=== PATIENT | female | born 1990 | race Caucasian/White ===

== ENCOUNTER 2021-07-22 14:54 | Inpatient (IN) | payer BC ==
[~2021-07-22] VITALS: Ht 172.7 cm; Wt 81.5 kg
[2021-07-22] VITALS (10 sets, daily range): BP systolic 83–110; BP diastolic 47–58
[2021-07-22] MEDS ORDERED: BUPIVACAINE-EPI 0.25%-1:200000 MPF 30 ML VIAL. ONE (15:34)
--- NOTE | 2021-07-22 16:01 | PDOC2 ---
CONSULT Date of Consult Date of Consult DATE: 07/22/21 TIME: 15:59 Reason for Consult Reason for Consult: Acute appendicitis Referring Physician Referring Physician: Parish Identification/Chief Complaint Chief Complaint Right lower quadrant abdominal pain Source Source: Chart review, Patient History of Present Illness Reason for Visit: 30-year-old female whose had a 2-day history of worsening right lower quadrant abdominal pain came into the emergency department today because of worsening pain CT scan was done which showed signs consistent with acute appendicitis without abscess or phlegmon or rupture. Past Medical History Cardiovascular: No pertinent hx Pulmonary: No pertinent hx GI: No pertinent hx Heme/Onc: No pertinent hx Hepatobiliary: No pertinent hx Psych: No pertinent hx Rheumatologic: No pertinent hx Infectious disease: No pertinent hx ENT: No pertinent hx Renal/: No pertinent hx Endocrine: Hypothyroidism Dermatology: No pertinent hx Past Surgical History Past Surgical History: , Other (Umbilical hernia repair) ROS Gastrointestinal: Yes Abdominal Pain Physical Exam General: Alert, Oriented X3, Cooperative, mild distress HEENT: Atraumatic, EOMI Lungs: Clear to auscultation, Normal air movement Heart: Regular rate, No murmurs Abdomen: Normal bowel sounds, Soft, Other (Tender to palpation right lower) Extremities: No edema Skin: No significant lesion Neuro: Normal speech Psych/Mental Status: Mental status NL Assessment/Plan Assessment/Plan Cute appendicitis plan laparoscopic appendectomy LIZANDRO ABRAMS MD Jul 22, 2021 16:01
[2021-07-22] MEDS ORDERED: fentaNYL PF VIAL 100 MCG/2 ML VIAL ONE ×2 (16:06→17:05)
[2021-07-22] MEDS ORDERED: PIPERACILLIN/TAZOBACTAM 3.375 GM in IV NORMAL SALINE 50ML 50 ML IV STA (16:06)
[2021-07-22] MEDS ORDERED: ELECTROLYTE (NON-ICU) PROTOCOL. MC PRN (16:15)
[2021-07-22] MEDS ORDERED: ZOLPIDEM 5 MG TABLET. PO PRN (16:15)
[2021-07-22] MEDS ORDERED: oxyCODONE IR 5 MG TABLET PO PRN (16:15)
[2021-07-22] MEDS ORDERED: PIPERACILLIN/TAZOBACTAM 3.375 GM in IV NORMAL SALINE 50ML 50 ML IV ONE (16:15)
[2021-07-22] MEDS ORDERED: ONDANSETRON PF 4 MG/2 ML VIAL. IVP PRN (16:15)
[2021-07-22] MEDS ORDERED: ROCURONIUM 50 MG/5 ML VIAL. ONE (16:15)
[2021-07-22] MEDS ORDERED: ACETAMINOPHEN 325 MG TABLET. PO PRN (16:15)
[2021-07-22] MEDS ORDERED: CALCIUM CARBONATE 500 MG TAB.CHEW PO PRN (16:15)
[2021-07-22] MEDS ORDERED: MORPHINE SULFATE 2 MG/ML INJ. IV PRN (16:15)
[2021-07-22] MEDS ORDERED: BUPIVACAINE-EPI 0.25%-1:200000 MPF 30 ML VIAL. INJ ONE (16:18)
--- NOTE | 2021-07-22 16:28 | PDOC1 ---
History and Physical Date of Service: DOS: DATE: 07/22/21 TIME: 16:24 Chief Complaint: Problems: (1) Appendicitis Chief Complain: abdominal pain History of Present Illness: HPI: Patient is a 32-year-old female who is presenting with 2 to 3-day history of worsening abdominal pain. Reports the pain initially was pretty diffuse but eventually localized to her right lower quadrant. Says she has been having general unwell feeling and some nausea. Went to the emergency department today due to worsening pain and CT scan showed acute appendicitis without abscess or rupture. [facility] contacted for transfer here. Accepted for surgical evaluation. Past Medical/Surgical History: PMH/PSH: Denies past medical history Allergies: Allergies: Coded Allergies: No Known Medication Allergies (Verified Allergy, Intermediate, 07/22/21) Family History: Family History: Reviewed with patient no known Social History: Social History: Denies alcohol tobacco drug use Current Medications: Current Medications Current Medications Piperacillin Sod/ Tazobactam Sod 3.375 gm/Sodium Chloride 50 ml @ 100 mls/hr 1X STAT IV ; Start 07/22/21 at 16:06; Stop 07/22/21 at 16:35; Status UNV Piperacillin Sod/ Tazobactam Sod 3.375 gm/Sodium Chloride 50 ml @ 100 mls/hr 1X ONCE IV ; Start 07/22/21 at 16:15; Stop 07/22/21 at 16:44 Ondansetron HCl (Zofran) 4 mg PRN Q6HRS PRN IVP NAUSEA/VOMITING; Start 07/22/21 at 16:15 Calcium Carbonate/ Glycine (Tums) 500 mg PRN Q3HRS PRN PO UPSET STOMACH; Start 07/22/21 at 16:15 Zolpidem Tartrate (Ambien) 5 mg PRN QHS PRN PO INSOMNIA, MAY REPEAT IN 1HR; S tart 07/22/21 at 16:15 Info (Non-Icu Electrolyte Protocol) 1 ea PRN DAILY PRN MC SEE COMMENTS; Start 07/22/21 at 16:15 Oxycodone HCl (Roxicodone) 5 mg PRN Q3HRS PRN PO BREAKTHROUGH PAIN; Start 07/22/21 at 16:15 Morphine Sulfate (Morphine Sulfate) 1 mg PRN Q1HR PRN IV MODERATE PAIN; Start 07/22/21 at 16:15 Morphine Sulfate (Morphine Sulfate) 2 mg PRN Q1HR PRN IV SEVERE PAIN; Start 07/22/21 at 16:15 Acetaminophen (Tylenol) 650 mg PRN Q6HRS PRN PO Headaches, Temp > 101.5F; Start 07/22/21 at 16:15 Senna/Docusate Sodium (Senna Plus) 1 tab BID PO ; Start 07/22/21 at 21:00 ROS: Review of Systems Review of System Unless noted in HPI 14 point review of systems was negative Physical Exam: Vital Signs: Vital Signs Date Time Temp Pulse Resp B/P (MAP) Pulse Ox O2 Delivery O2 Flow Rate FiO2 07/22/21 15:27 99.9 82 20 109/50 100 Room Air 99.9 Physcial Exam: GEN: No apparent distress. Alert and oriented HEENT: Normal cephalic, atraumatic, external auditory canals are patent EYES: Extraocular muscles are intact, pupil are equally round and reactive to light and accommodation MUSCULOSKELETAL: Well developed , well nourished, good range of motion ENDOCRINE: No thyromegaly was palpated LYMPHATICS: No cervical chain or axillary nodes were noted HEMATOPOIETIC: No bruising NECK: Supple, no JVD, no thyromegaly was noted LUNGS: Clear to auscultation in all lung resendiz without rhonchi or wheezing HEART: RRR, S1, S2 present. Peripheral pulses intact, no obvious murmurs noted ABDOMEN: Tender throughout nondistended EXTREMITIES: Without clubbing, cyanosis, or edema. Pedal pulses intact. Negative Homans sign NEUROLOGIC: Normal speech and tone. A&O x 3, moves all extremities, no obvious focal deficits PSYCHIATRIC: Normal affect, normal mood. Stable SKIN: No ulcerations or rashes, good skin turgor, no jaundice VASCULAR: Good capillary refill, neurovascular bundle appears to be intact Assessment/Plan Assessment/Plan Acute appendicitis -2 to 3-day history of abdominal pain. Outside hospital CT showed acute appendicitis -Start Zosyn for antibiotic -Surgery consulted planning for appendectomy -Keep n.p.o. -Hold DVT prophylaxis -No home meds to resume Justifications for Admission Other Justification PHYLLIS SULLIVAN MD Jul 22, 2021 16:28
[2021-07-22] MEDS ORDERED: KETOROLAC 30 MG/ML VIAL. ONE (16:43)
[2021-07-22] MEDS ORDERED: ONDANSETRON PF 4 MG/2 ML VIAL. ONE (16:43)
[2021-07-22] MEDS ORDERED: GLYCOPYRROLATE 1 MG/5 ML VIAL. ONE (16:43)
[2021-07-22] MEDS ORDERED: PROPOFOL 10 MG/ML (20ML) VIAL. IV ONE (16:43)
[2021-07-22] MEDS ORDERED: SEVOFLURANE 61 TO 120 MINUTES. IH ONE (16:43)
[2021-07-22] MEDS ORDERED: DEXAMETHASONE SOD PHOS 4 MG/ML VIAL ONE (16:43)
[2021-07-22] MEDS ORDERED: NEOSTIGMINE METHYLSULFATE 5 MG/5 ML SYRINGE. ONE (16:43)
[2021-07-22] MEDS ORDERED: LIDOCAINE 2% PF 5 ML VIAL. ONE (16:43)
--- NOTE | 2021-07-22 16:48 | PDOC4 ---
Operative Note Operative Note Date: July 222020 at 1646 Preoperative diagnosis: Acute appendicitis Postoperative diagnosis: Same Procedure: Laparoscopic appendectomy Surgeon: Jake Specimen: Appendix Dictation: Patient is a 30-year-old female who was mated to the hospital with right lower quadrant abdominal pain and a CT scan showing signs consistent with acute appendicitis. Procedure of laparoscopic appendectomy was explained to the patient detail risk benefits were also discussed including bleeding infection injury to intra-abdominal contents possible necessitating further open operations alternatives to this procedure also discussed with the patient who seemed to understand and gave a verbal written consent to have procedure performed. Patient was taken to the operating room placed in the supine position general anesthesia was initiated once patient was sleeping intubated her abdomen was prepped and draped usual sterile fashion using ChloraPrep area just below the umbilicus was injected with quarter percent Marcaine with epinephrine incision was made 11 blade scalpel and a varies needle was placed within the abdomen creating pneumoperitoneum once this was complete 12 mm port was placed in a 5 mm camera was placed within the abdomen which was inspected was noted the appendix was edematous no other abnormalities were noted. A 5 mm port was placed low in the midline under direct visualization and a second 5 mm port was placed in the right midabdomen under direct visualization. The appendix was grasped retracted towards the anterior abdominal wall a window was propagated the mesoappendix at the base the appendix with a [place] dissector. Endo ROGELIO stapler was then used to staple and transect the base of the appendix a second load was used to staple and transect the mesoappendix. The appendix was placed in Endo Catch bag removed from the umbilicus right lower quadrant pelvis were irrigated and suctioned dry hemostasis deemed to appropriate the pneumoperitoneum was reduced all ports were removed the fascial defect at the umbilicus was closed with a obwgby-aw-[id number] 0 Vicryl suture and the skin was reapproximated all port sites for subcuticular Monocryl Mastisol Steri-Strips and island dressings were applied. Patient was awakened and extubated in the operating room taken to recovery in stable condition all sponge instrument needle counts listed as correct estimated blood loss 10 mL LIZANDRO ABRAMS MD Jul 22, 2021 16:48
[2021-07-22] MEDS ORDERED: HYDROmorphone 2 MG/ML VIAL IVP PRN (17:00)
[2021-07-22] MEDS ORDERED: IV RINGERS,LACTATED 1000ML 1,000 ML IV SCH (17:00)
[2021-07-22] MEDS ORDERED: fentaNYL PF VIAL 100 MCG/2 ML VIAL IVP PRN ×2 (17:00)
[2021-07-22] MEDS ORDERED: oxyCODONE/APAP 5/325 1 TAB TABLET PO PRN ×2 (17:00)
[2021-07-22] MEDS ORDERED: PROCHLORPERAZINE 10 MG/2 ML VIAL. IVP PRN (17:00)
[2021-07-22] MEDS: KETOROLAC 15 MG/ML VIAL. IVP SCH (17:45)
[2021-07-22] MEDS ORDERED: MORPHINE SULFATE 2 MG/ML INJ. ONE (17:49)
[2021-07-22] MEDS: MORPHINE SULFATE 2 MG/ML INJ. IVP PRN ×2 (17:53→18:03)
--- NOTE | 2021-07-22 19:03 | NUR ---
At 18:10 PM The patient, LAMBERT BYERS, 30 y/o, F admitted by PHYLLIS SULLIVAN MD, was given written information regarding hospital policies, unit procedures and contact persons. Valuables were checked and left with her.
[2021-07-22] MEDS: MORPHINE SULFATE 2 MG/ML INJ. IV PRN ×2 (20:11→22:51)
[2021-07-22] MEDS: SENNOSIDES/DOCUSATE 8.6/50MG TABLET. PO SCH (20:11)
[2021-07-22] MEDS: PIPERACILLIN/TAZOBACTAM 3.375 GM in IV NORMAL SALINE 50ML 50 ML IV SCH (22:58)
[2021-07-22] MEDS ORDERED: VENL37.5 PO (23:51)
[2021-07-22] MEDS ORDERED: LEVO175T5 PO (23:51)
[2021-07-23] MEDS: KETOROLAC 15 MG/ML VIAL. IVP SCH ×3 (00:08→12:41)
[2021-07-23] MEDS: MORPHINE SULFATE 2 MG/ML INJ. IV PRN ×3 (01:25→10:00)
[2021-07-23 03:21] VITALS: BP 93/43
[2021-07-23] MEDS: PIPERACILLIN/TAZOBACTAM 3.375 GM in IV NORMAL SALINE 50ML 50 ML IV SCH ×2 (05:11→12:40)
[2021-07-23 07:00] VITALS: BP 97/57
[2021-07-23 07:08] LABS: BASO % 0 % (0-3); EOS % 0 % (0-3); HEMATOCRIT 35.3 % (36.0-47.0); HEMOGLOBIN 12.2 g/dL (12.0-15.5); LYMPH # 1.3 x10^3/uL (1.0-4.8); LYMPH % 18 % (24-48); MEAN CORPUSCULAR HEMOGLOBIN 33 pg (25-35); MEAN CORPUSCULAR HGB CONC 35 g/dL (31-37); MEAN CORPUSCULAR VOLUME 96 fL (79-100); MONO # 0.5 x10^3/uL (0.0-1.1); MONO % 7 % (0-9); NEUT # 5.4 x10^3/uL (1.8-7.7); NEUT % 75 % (31-73); PLATELET COUNT 210 x10^3/uL (140-400); RED BLOOD COUNT 3.69 x10^6/uL (3.50-5.40); RED CELL DISTRIBUTION WIDTH 12.8 % (11.5-14.5); WHITE BLOOD COUNT 7.2 x10^3/uL (4.0-11.0)
[2021-07-23] MEDS: SENNOSIDES/DOCUSATE 8.6/50MG TABLET. PO SCH (09:50)
[2021-07-23 11:33] VITALS: BP 104/54
--- NOTE | 2021-07-23 13:30 | PDOC ---
[facility] [facility] PROGRESS NOTE Date of Service DOS: DATE: 07/23/21 TIME: 13:26 Chief Complaint Chief Complaint Acute appendicitis Plan: -2 to 3-day history of abdominal pain. Outside hospital CT showed acute appendicitis -Start Zosyn for antibiotic -Surgery consulted planning for appendectomy -Keep n.p.o. -No home meds to resume History of Present Illness History of Present Illness Patient is a 32-year-old female who is presenting with 2 to 3-day history of worsening abdominal pain. Reports the pain initially was pretty diffuse but eventually localized to her right lower quadrant. Says she has been having general unwell feeling and some nausea. Went to the emergency department today due to worsening pain and CT scan showed acute appendicitis without abscess or rupture. [facility] contacted for transfer here. Accepted for surgical evaluation. 07/23/2021: Afebrile. S/p laparoscopic appendectomy. Complains of some postsurgical incisional tenderness. Tolerating regular diet. She has been seen today by general surgery and states she is okay to discharge home. Greater than 30 minutes spent managing the discharge of this patient. Vitals/I&O Vitals/I&O: Vital Signs Date Time Temp Pulse Resp B/P (MAP) Pulse Ox O2 Delivery O2 Flow Rate FiO2 07/23/21 11:33 97.8 72 16 104/54 (71) 99 Room Air 97.8 07/22/21 22:25 10.0 I & O 0 07/22/21 07/22/21 07/23/21 15:00 23:00 07:00 Intake Total 1210 ml 240 ml Output Total 10 ml Balance 1200 ml 240 ml Physical Exam General: Alert, Oriented X3, Cooperative, mild distress Heart: Regular rate, No murmurs Lungs: Clear Abdomen: Normal bowel sounds, Soft, Other (Tender to palpation right lower) Extremities: No edema Skin: No significant lesion Labs Labs: Laboratory Tests Test 07/23/21 06:10 White Blood Count 7.2 x10^3/uL (4.0-11.0) Red Blood Count 3.69 x10^6/uL (3.50-5.40) Hemoglobin 12.2 g/dL (12.0-15.5) Hematocrit 35.3 % (36.0-47.0) Mean Corpuscular Volume 96 fL (79-100) Mean Corpuscular Hemoglobin 33 pg (25-35) Mean Corpuscular Hemoglobin Concent 35 g/dL (31-37) Red Cell Distribution Width 12.8 % (11.5-14.5) Platelet Count 210 x10^3/uL (140-400) Neutrophils (%) (Auto) 75 % (31-73) Lymphocytes (%) (Auto) 18 % (24-48) Monocytes (%) (Auto) 7 % (0-9) Eosinophils (%) (Auto) 0 % (0-3) Basophils (%) (Auto) 0 % (0-3) Neutrophils # (Auto) 5.4 x10^3/uL (1.8-7.7) Lymphocytes # (Auto) 1.3 x10^3/uL (1.0-4.8) Monocytes # (Auto) 0.5 x10^3/uL (0.0-1.1) Eosinophils # (Auto) 0.0 x10^3/uL (0.0-0.7) Basophils # (Auto) 0.0 x10^3/uL (0.0-0.2) Comment Review of Relevant I have reviewed the following items cinthia (where applicable) has been applied. Medications: Current Medications Medications (Trade) Dose Ordered Sig/Grace Route PRN Reason Start Time Stop Time Status Last Admin Dose Admin Piperacillin Sod/ Tazobactam Sod 3.375 gm/Sodium Chloride 50 ml @ 100 mls/hr 1X ONCE IV 07/22/21 16:15 07/22/21 16:44 DC 07/22/21 16:17 Zolpidem Tartrate (Ambien) 5 mg PRN QHS PRN PO INSOMNIA, MAY REPEAT IN 1HR 07/22/21 16:15 07/22/21 20:52 Oxycodone HCl (Roxicodone) 5 mg PRN Q3HRS PRN PO BREAKTHROUGH PAIN 07/22/21 16:15 07/22/21 21:55 Morphine Sulfate (Morphine Sulfate) 2 mg PRN Q1HR PRN IV SEVERE PAIN 07/22/21 16:15 07/23/21 10:00 Senna/Docusate Sodium (Senna Plus) 1 tab BID PO 07/22/21 21:00 07/23/21 09:50 Bupivacaine HCl/ Epinephrine Bitart (Sensorcaine-Epi 0.25%-1:[id number] Mpf) 30 ml STK-MED ONCE INJ 07/22/21 16:18 07/22/21 16:35 DC 07/22/21 16:18 Piperacillin Sod/ Tazobactam Sod 3.375 gm/Sodium Chloride 50 ml @ 100 mls/hr Q6HRS IV 07/23/21 00:00 07/23/21 12:40 Oxycodone/ Acetaminophen (Percocet 5/325) 2 tab PRN Q4HRS PRN PO PAIN 07/22/21 17:00 07/22/21 20:52 Ketorolac Tromethamine (Toradol 15mg Vial) 15 mg Q6HRS IVP 07/22/21 18:00 07/24/21 17:59 07/23/21 12:41 Fentanyl Citrate (Fentanyl 2ml Vial) 25 mcg PRN Q5MIN PRN IVP MILD PAIN 1-3 07/22/21 17:00 07/23/21 16:59 07/22/21 17:13 Fentanyl Citrate (Fentanyl 2ml Vial) 50 mcg PRN Q5MIN PRN IVP MODERATE PAIN 4-6 07/22/21 17:00 07/23/21 16:59 07/22/21 17:32 Morphine Sulfate (Morphine Sulfate) 1 mg PRN Q10MIN PRN IVP SEVERE PAIN 7-10 07/22/21 17:00 07/23/21 16:59 07/22/21 18:03 Ringer's Solution 1,000 ml @ 30 mls/hr Q24H IV 07/22/21 17:00 07/23/21 04:59 DC 07/22/21 16:05 Prochlorperazine Edisylate (Compazine) 5 mg PACU PRN PRN IVP NAUSEA, MRX1 07/22/21 17:00 07/23/21 16:59 07/22/21 20:53 Justifications for Admission Other Justification GABE KUMAR MD Jul 23, 2021 13:30
--- NOTE | 2021-07-23 13:59 | PDOC ---
SURGICAL PROGRESS NOTE DATE: 07/23/21 TIME: 13:57 Subjective overall improved tolerating diet urinating Vital Signs Vital Signs Date Time Temp Pulse Resp B/P (MAP) Pulse Ox O2 Delivery O2 Flow Rate FiO2 07/23/21 11:33 97.8 72 16 104/54 (71) 99 Room Air 97.8 07/22/21 22:25 10.0 I&O Intake and Output 07/23/21 07:00 Intake Total 1450 ml Output Total 10 ml Balance 1440 ml Intake Oral 600 ml IV Total 850 ml Output Estimated Blood Loss 10 ml # Voids 2 General: Alert, Oriented X3, Cooperative Abdomen: Soft, Other (lap dressings dry) Labs Laboratory Tests Test 07/23/21 06:10 White Blood Count 7.2 x10^3/uL (4.0-11.0) Red Blood Count 3.69 x10^6/uL (3.50-5.40) Hemoglobin 12.2 g/dL (12.0-15.5) Hematocrit 35.3 % (36.0-47.0) Mean Corpuscular Volume 96 fL (79-100) Mean Corpuscular Hemoglobin 33 pg (25-35) Mean Corpuscular Hemoglobin Concent 35 g/dL (31-37) Red Cell Distribution Width 12.8 % (11.5-14.5) Platelet Count 210 x10^3/uL (140-400) Neutrophils (%) (Auto) 75 % (31-73) Lymphocytes (%) (Auto) 18 % (24-48) Monocytes (%) (Auto) 7 % (0-9) Eosinophils (%) (Auto) 0 % (0-3) Basophils (%) (Auto) 0 % (0-3) Neutrophils # (Auto) 5.4 x10^3/uL (1.8-7.7) Lymphocytes # (Auto) 1.3 x10^3/uL (1.0-4.8) Monocytes # (Auto) 0.5 x10^3/uL (0.0-1.1) Eosinophils # (Auto) 0.0 x10^3/uL (0.0-0.7) Basophils # (Auto) 0.0 x10^3/uL (0.0-0.2) Laboratory Tests Test 07/23/21 06:10 White Blood Count 7.2 x10^3/uL (4.0-11.0) Red Blood Count 3.69 x10^6/uL (3.50-5.40) Hemoglobin 12.2 g/dL (12.0-15.5) Hematocrit 35.3 % (36.0-47.0) Mean Corpuscular Volume 96 fL (79-100) Mean Corpuscular Hemoglobin 33 pg (25-35) Mean Corpuscular Hemoglobin Concent 35 g/dL (31-37) Red Cell Distribution Width 12.8 % (11.5-14.5) Platelet Count 210 x10^3/uL (140-400) Neutrophils (%) (Auto) 75 % (31-73) Lymphocytes (%) (Auto) 18 % (24-48) Monocytes (%) (Auto) 7 % (0-9) Eosinophils (%) (Auto) 0 % (0-3) Basophils (%) (Auto) 0 % (0-3) Neutrophils # (Auto) 5.4 x10^3/uL (1.8-7.7) Lymphocytes # (Auto) 1.3 x10^3/uL (1.0-4.8) Monocytes # (Auto) 0.5 x10^3/uL (0.0-1.1) Eosinophils # (Auto) 0.0 x10^3/uL (0.0-0.7) Basophils # (Auto) 0.0 x10^3/uL (0.0-0.2) Problem List s/p appy wn 7 ok to or home Justicifation of Admission Dx: Justifications for Admission: Justification of Admission Dx: Yes Comments: appendicitis SANA FRANCO WELDING MACHINE OPERATOR ELECTROSLAG Jul 23, 2021 13:59
[2021-07-23 14:48] VITALS: BP 107/60
--- NOTE | 2021-07-23 14:59 | PDOC3 ---
Discharge Summary Visit Information Date of Admission: Jul 22, 2021 Date of Discharge: Jul 23, 2021 Brief Hospital Course Allergies Allergies Coded Allergies Type Severity Reaction Last Updated Verified No Known Medication Allergies Allergy Intermediate 07/22/21 Yes Vital Signs Vital Signs Date Time Temp Pulse Resp B/P (MAP) Pulse Ox O2 Delivery O2 Flow Rate FiO2 07/23/21 14:48 98.0 73 16 107/60 (76) 98 Room Air 98.0 07/22/21 22:25 10.0 Lab Results Laboratory Tests Test 07/23/21 06:10 White Blood Count 7.2 x10^3/uL (4.0-11.0) Red Blood Count 3.69 x10^6/uL (3.50-5.40) Hemoglobin 12.2 g/dL (12.0-15.5) Hematocrit 35.3 % (36.0-47.0) Mean Corpuscular Volume 96 fL (79-100) Mean Corpuscular Hemoglobin 33 pg (25-35) Mean Corpuscular Hemoglobin Concent 35 g/dL (31-37) Red Cell Distribution Width 12.8 % (11.5-14.5) Platelet Count 210 x10^3/uL (140-400) Neutrophils (%) (Auto) 75 % (31-73) Lymphocytes (%) (Auto) 18 % (24-48) Monocytes (%) (Auto) 7 % (0-9) Eosinophils (%) (Auto) 0 % (0-3) Basophils (%) (Auto) 0 % (0-3) Neutrophils # (Auto) 5.4 x10^3/uL (1.8-7.7) Lymphocytes # (Auto) 1.3 x10^3/uL (1.0-4.8) Monocytes # (Auto) 0.5 x10^3/uL (0.0-1.1) Eosinophils # (Auto) 0.0 x10^3/uL (0.0-0.7) Basophils # (Auto) 0.0 x10^3/uL (0.0-0.2) Laboratory Tests Test 07/23/21 06:10 White Blood Count 7.2 x10^3/uL (4.0-11.0) Red Blood Count 3.69 x10^6/uL (3.50-5.40) Hemoglobin 12.2 g/dL (12.0-15.5) Hematocrit 35.3 % (36.0-47.0) Mean Corpuscular Volume 96 fL (79-100) Mean Corpuscular Hemoglobin 33 pg (25-35) Mean Corpuscular Hemoglobin Concent 35 g/dL (31-37) Red Cell Distribution Width 12.8 % (11.5-14.5) Platelet Count 210 x10^3/uL (140-400) Neutrophils (%) (Auto) 75 % (31-73) Lymphocytes (%) (Auto) 18 % (24-48) Monocytes (%) (Auto) 7 % (0-9) Eosinophils (%) (Auto) 0 % (0-3) Basophils (%) (Auto) 0 % (0-3) Neutrophils # (Auto) 5.4 x10^3/uL (1.8-7.7) Lymphocytes # (Auto) 1.3 x10^3/uL (1.0-4.8) Monocytes # (Auto) 0.5 x10^3/uL (0.0-1.1) Eosinophils # (Auto) 0.0 x10^3/uL (0.0-0.7) Basophils # (Auto) 0.0 x10^3/uL (0.0-0.2) Brief Hospital Course Ms. Pinedo is a 30 old female who presented with acute hepatitis. Consultation placed to general surgery. She laparoscopic appendectomy without complication. Tolerated her diet well surgery. Stable to discharge home with close PCP follow-up. Discharge Information Condition at Discharge: Improved Disposition/Orders: D/C to Home Scheduled Levothyroxine Sodium (Levothyroxine Sodium) 175 Mcg Tablet, 1 TAB PO DAILY for Hypothyroidism, #30 Ref 5 (Reported) Entered as Reported by: ADRIENNE GAITAN on 07/22/212350 Last Taken: Unknown Dose on 07/22/21 0730 Last Action: New Order on 07/22/212350 by ADRIENNE HER Venlafaxine Hcl (Effexor Xr) 37.5 Mg Cap.er.24h, 75 MG PO DAILY for Depression, (Reported) Entered as Reported by: ADRIENNE GAITAN on 07/22/212350 Last Taken: Unknown Dose on 07/22/21 0900 Last Action: New Order on 07/22/212350 by ADRIENNE GAITAN Justicifation of Admission Dx: Justifications for Admission: Justification of Admission Dx: Yes GABE KUMAR MD Jul 23, 2021 14:59
[2021-07-23] MEDS ORDERED: OXYC1TAB15 PO (15:01)
[2021-07-23] MEDS ORDERED: LACTOBACILLUS RHAMNOSUS GG 1 CAPSULE. PO SCH (21:00)
--- NOTE | 2021-07-24 15:22 | PATHOLOGY ---
[facility] Accession Number: [id number] . 01 Material submitted: . appendix - APPENDIX . 01 Clinical history: . APPENDICITIS LAPAROSCOPIC APPENDECTOMY . 02 Diagnosis: Appendix, laparoscopic appendectomy: - Acute appendicitis. ([facility]; 07/24/2021) P 07/24/2021 1312 Local . 02 Comment: There is no evidence of rupture. (JPM:[facility]; 07/24/2021) . 02 Electronically signed: . Magdaleno Charles MD, Pathologist NPI- [id number] . 01 Gross description: . Fixative: Formalin Labeled: Appendix Appendix length: 7.4 cm Appendix diameter: 1.4 cm Mesoappendix: 2.4 cm Proximal margin: Stapled Serosa: Purple-warren to pink-green and roughened Cut surface: Pinpoint to dilated Luminal diameter: Up to 0.8 cm Perforation: There are 2 possible perforations measuring 1.5 and 0.6 cm and located 3.8 cm and 3.6 cm from the proximal margin, respectively Lesions/abnormalities: None identified . Proximal margin and bisected tip in cassette A1. Additional sales representative church furniture cross-sections in cassette A2, with possible perforations in cassette A3. ([facility]; 07/23/2021) NRI/NRI 07/24/2021 1311 Local . 02 Pathologist provided ICD-10: K35.80 . 02 CPT . 593596 Specimen Comment: A courtesy copy of this report has been sent to [phone], [phone] Specimen Comment: [id number] Specimen Comment: Report sent to / DR SULLIVAN Specimen Comment: A duplicate report has been generated due to demographic updates. Performed at: [address] [place] [address] [address], [place], [place] [id number] MD Jose Antonio Patel MD Phone: [phone] Performed at: [address] [id number] MD Magdaleno Charles MD Phone: [phone]
== END 2021-07-23 15:35 | disposition home or self-care (01) | DRG 343 ==
LOC: 4 NORTH 15:36
PROVIDERS: ADMIT Student in an Organized Health Care Education/Training Program; ATTEND Student in an Organized Health Care Education/Training Program
PROC: 0DTJ4ZZ Resection of Appendix, Percutaneous Endoscopic Approach (ICD-10-PCS; principal; 2021-07-22 14:57)
DX: K35.80 Unspecified acute appendicitis (principal); E03.9 Hypothyroidism, unspecified; F32.A Depression, unspecified
CPT/HCPCS: 36415; 85025; 88304; A4223; A4314; A4364; A4930; J0780; J1100; J1885; J2270; J2405; J2543; J2704; J2710; J3010; J3490; J7120; G0378